=== PATIENT | male | born 1965 | race Caucasian/White ===

== ENCOUNTER 2023-09-24 06:16 | Day surgery (SDC) | payer BC, SELFPAY ==
[2023-09-23 07:50] LABS: Urine Albumin Negative (Neg - Trace); Urine Bilirubin Negative (Negative); Urine Character Clear (Clear); Urine Color Yellow; Urine Glucose Negative (Negative); Urine Ketone Negative (Negative); Urine Leukocyte Negative (Negative); Urine Nitrite Negative (Negative); Urine Occult Blood Negative (Negative); Urine Specific Gravity 1.015 (<1.030); Urine Urobilinogen Negative (Neg - 1+)
[2023-09-23 07:55] LABS: Hematocrit 40.6 % (39.0-52.0); Hemoglobin 13.4 g/dL (13.0-18.0); Mean Corpuscular Hgb 29.5 pg (27.0-31.0); Mean Corpuscular Volume 89.2 fL (80.0-94.0); Platelet Count 193 10^3/uL (130-400); Red Blood Cell Count 4.55 10^6/uL (4.70-6.10); Red Cell Dist. Width 13.2 % (11.5-14.5); White Blood Cell Count 7.9 10^3/uL (4.8-10.8)
[2023-09-23 08:00] LABS: INR 0.99; PT 12.9 Sec (11.4-14.6)
[2023-09-23 08:01] LABS: APTT 24.6 Sec (23.4-35.0)
[2023-09-23 08:14] LABS: Blood Urea Nitrogen 26 mg/dl (9-20); Calcium 9.3 mg/dl (8.4-10.2); Carbon Dioxide 25 mmol/L (22-30); Chloride 102 mmol/L (98-107); Glucose 89 mg/dl (70-99); Potassium 4.5 mmol/L (3.5-5.1); Sodium 134 mmol/L (135-145); eGFR > 60.00
[2023-09-24 08:16] VITALS: BP 131/74
[2023-09-24 08:20] VITALS: BP 131/74; BP 161/84
[2023-09-24 08:30] VITALS: BP 132/70
[2023-09-24 08:45] VITALS: BP 117/70
[2023-09-24] MEDS: Pyridium 200 MG PO (09:09)
[2023-09-24 09:20] VITALS: BP 135/79
== END 2023-09-24 09:35 | disposition home or self-care (01) ==
LOC: SDS 06:16
PROVIDERS: ATTENDING PHYSICIAN Urology; FAMILY PHYSICIAN Family Medicine
DX: N13.5 Crossing vessel and stricture of ureter without hydronephrosis (principal); N13.1 Hydronephrosis with ureteral stricture, not elsewhere classified
CPT/HCPCS: 52005; 36415; 74420; 76000; 80048; 81003; 85027; 85610; 85730; 86850; 86900; 86901; 93005; A4300

== ENCOUNTER 2023-09-26 06:33 | Day surgery (SDC) | payer BC, SELFPAY ==
[2023-09-23 07:24] VITALS: BMI 27.8
[2023-09-24 06:16] VITALS: BMI 27.8
[2023-09-24 06:22] VITALS: BP 161/84
[2023-09-26] VITALS (13 sets, daily range): BP systolic 141–171; BP diastolic 79–90; BMI 27.8; BMI 26.8
[2023-09-26] MEDS: NORMOSOL-R 1000 IV (11:41)
[2023-09-26] MEDS: DILAUDID 0.5 MG IV ×4 (17:48→23:18)
[2023-09-26] MEDS: TORADOL 15 MG IV (18:49)
[2023-09-26] MEDS: NSS 1000 IV (18:51)
--- NOTE | 2023-09-26 20:55 | TRANSFER ---
Pt received from PACU in bed at 1930 w dx of ROBOTIC LEFT PYLEOPLASTY - OX3, drowsy but arousable to verbal. 5 lap sites to ABD w DOTTY singleton. Pt c/o 09/24 pain to abd, did not want pain meds. Bed in lowest position, call hernandez within reach. Safety
maintained.
[2023-09-26] MEDS: SENOKOT 8.59999999999999964 MG PO (21:12)
[2023-09-27] MEDS: TORADOL 15 MG IV ×3 (00:37→12:13)
[2023-09-27 03:58] VITALS: BP 158/81
[2023-09-27 05:13] LABS: % Basophils 0.3 % (0-2); % Eosinophils 0.3 % (0-6); % Immature Granulocytes 0.5 % (0-0.5); % Lymphocytes 22.2 % (20.5-51.1); % Monocytes 6.4 % (1.7-9.3); % Neutrophils 70.3 % (42.2-75.2); Absolute Immature Granulocytes 0.1 10^3/uL (0-0.05); Absolute Lymphocytes 2.1 10^3/uL (1.2-3.4); Absolute Monocytes 0.6 10^3/uL (0.1-0.6); Absolute Neutrophils 6.6 10^3/uL (1.4-6.5); Hematocrit 36.9 % (39.0-52.0); Hemoglobin 11.9 g/dL (13.0-18.0); Mean Corp Hgb Conc. 32.2 g/dL (33.0-37.0); Mean Corpuscular Hgb 29.8 pg (27.0-31.0); Mean Corpuscular Volume 92.3 fL (80.0-94.0); Mean Platelet Volume 10.4 fL (7.4-10.4); Nucleated Red Blood Cells % 0 % (-); Platelet Count 151 10^3/uL (130-400); Red Cell Dist. Width 13.4 % (11.5-14.5); White Blood Cell Count 9.4 10^3/uL (4.8-10.8)
[2023-09-27 05:32] LABS: Blood Urea Nitrogen 18 mg/dl (9-20); Calcium 8.3 mg/dl (8.4-10.2); Carbon Dioxide 29 mmol/L (22-30); Chloride 99 mmol/L (98-107); Estimated Creatinine Clearance 88 ml/min; Glucose 83 mg/dl (70-99); Potassium 4.3 mmol/L (3.5-5.1); Sodium 135 mmol/L (135-145); eGFR > 60.00
[2023-09-27 07:47] VITALS: BP 168/85
--- NOTE | 2023-09-27 08:01 | W.PN.URO.CBU ---
Today's Communication / Plan
-
Discharge
Assessment / Plan
-
58M POD 1 s/p robotic L pyeloplasty
Alves out
Ambulate
Regular diet
Discharge home today - stent to be removed in about 1 mo
Diagnosis
-
Date of Service: September 27, 2023
-
Patient Diagnosis:
L UPJ obstruction
Post Op Day: s/p pyeloplasty 09/25
Subjective
-
feeling well
tolerating diet
Objective
-
Vital Signs
Temp Pulse Resp BP Pulse Ox
98.0 F 70 18 158/81 97
09/27/23 03:58 09/27/23 03:58 09/27/23 03:58 09/27/23 03:58 09/27/23 03:58
Intake and Output
09/26/23 09/27/23 09/28/23
06:59 06:59 06:59
Intake Total 1000 / 1000
Output Total 1100 / 1100
Balance -100 / -100
Intake:
Oral fluids 0 / 0
IV fluids (Total) 1000 / 1000
Normosal 300 / 300
IV piggybacks 0 / 0
Output:
Urine, Alves 1100 / 1100
Laboratory Results
09/27/23 04:06
09/27/23 04:06
Physical Exam
-
General - well developed, well nourished, no acute distress
Chest - clear bilaterally
Abdomen - soft, non-tender
Alves light pink urine
Skin - warm & dry with no rash
Neuro - AOx3, no motor deficits
Extremities - no clubbing, no cyanosis, no edema
[2023-09-27] MEDS: TOPROL XL 25 MG PO (10:09)
[2023-09-27] MEDS: ZYLOPRIM 300 MG PO (10:09)
[2023-09-27] MEDS: CRESTOR 20 MG PO (10:10)
[2023-09-27] MEDS: LOW STRENGTH ASPIRIN 81 MG PO (10:10)
[2023-09-27] MEDS: SENOKOT 8.59999999999999964 MG PO (10:10)
--- NOTE | 2023-09-27 14:17 | CM ---
met with paient and at bedside.patient lives with spouise in 2 story home with 2 ritesh,his bed and bath is o the second level,he amb i and is I with his adl.his pcp is dr luther goldman and he uses [facility] in [place].he has never had a vn or
been to ip rehab in past.pt is adm for left robo pyeloplasty,his stent willbe removed in 1 month.patient will have no needs when dc home.
== END 2023-09-27 13:39 | disposition home or self-care (01) ==
LOC: SDS 06:33
PROVIDERS: ATTENDING PHYSICIAN Urology
DX: N13.5 Crossing vessel and stricture of ureter without hydronephrosis (principal); R10.9 Unspecified abdominal pain; N18.31 Chronic kidney disease, stage 3a
CPT/HCPCS: 50544; 80048; 85025; C2617

== ENCOUNTER → 2023-12-26 10:30 | Outpatient (REF) | payer BC, SELFPAY | LOC: RAD 10:30 | PROVIDERS: ATTENDING PHYSICIAN Urology; FAMILY PHYSICIAN Family Medicine | DX: N13.5 Crossing vessel and stricture of ureter without hydronephrosis (principal) | CPT/HCPCS: 76775; 78708; A9539 ==

== ENCOUNTER → 2024-07-29 10:24 | Outpatient (REF) | payer BC, SELFPAY | LOC: RAD 10:24 | PROVIDERS: ATTENDING PHYSICIAN Urology; FAMILY PHYSICIAN Family Medicine | DX: N13.5 Crossing vessel and stricture of ureter without hydronephrosis (principal) | CPT/HCPCS: 78708; A9539 ==

== ENCOUNTER 2024-10-02 18:58 | Emergency (ER) | payer BC, SELFPAY ==
[2024-10-02 19:03] VITALS: BP 162/98
[2024-10-02 19:18] LABS: % Basophils 0.4 % (0-2); % Eosinophils 1.6 % (0-6); % Immature Granulocytes 0.2 % (0-0.5); % Lymphocytes 36.5 % (20.5-51.1); % Monocytes 7.6 % (1.7-9.3); % Neutrophils 53.7 % (42.2-75.2); Absolute Eosinophils 0.1 10^3/uL (0-0.7); Absolute Monocytes 0.6 10^3/uL (0.1-0.6); Absolute Neutrophils 4.5 10^3/uL (1.4-6.5); Hematocrit 42.1 % (39.0-52.0); Hemoglobin 13.9 g/dL (13.0-18.0); Mean Corpuscular Volume 90.9 fL (80.0-94.0); Mean Platelet Volume 10.1 fL (7.4-10.4); Nucleated Red Blood Cells % 0 % (-); Platelet Count 171 10^3/uL (130-400); Red Blood Cell Count 4.63 10^6/uL (4.70-6.10); Red Cell Dist. Width 12.8 % (11.5-14.5); White Blood Cell Count 8.3 10^3/uL (4.8-10.8)
[2024-10-02 19:35] LABS: ALT (SGPT) 36 U/L (0-50); AST (SGOT) 44 U/L (17-59); Albumin 4.2 g/dl (3.5-5.0); Alkaline Phosphatase 81 U/L (38-126); Blood Urea Nitrogen 24 mg/dl (9-20); Calcium 9.6 mg/dl (8.4-10.2); Carbon Dioxide 28 mmol/L (22-30); Chloride 102 mmol/L (98-107); Glucose 99 mg/dl (70-99); Potassium 4.5 mmol/L (3.5-5.1); Sodium 138 mmol/L (135-145); Total Bilirubin 0.5 mg/dl (0.2-1.3); Total Protein 6.9 g/dl (6.3-8.2); eGFR > 60.00
[2024-10-02 19:46] LABS: Troponin I < 0.012 ng/ml
[2024-10-02 20:40] VITALS: BP 146/99
[2024-10-02 21:00] VITALS: BP 144/80
[2024-10-02 22:00] VITALS: BP 138/79
[2024-10-02 23:44] LABS: Troponin I < 0.012 ng/ml
--- NOTE | 2024-10-03 00:17 | ED.GENMED ---
History of Present Illness
General
Chief Complaint: Chest Pain
Source: patient and spouse
Time Seen by Provider: 10/02/24 22:34
History of Present Illness
History of Present Illness:
59-year-old male who presents with chest pain. Patient states has been ongoing for 5 to 6 days at this point. Admits that the pain is generally mild but just persistent. Patient admits that the pain is there almost all day. States sometimes in
the morning is not quite noticeable but as the day goes on maybe midmorning or early afternoon, the pain persist throughout the rest of the day and evening. He states today he was planting planters and planted many plants in the yard. He states
that the pain did not change but when he was get a shower continue to notice and decided because it has been going on a week he would come in. States it does not feel anything like his previous coronary event. He does not smoke. He denies
shortness of breath. Does have history of reflux disease and takes Prilosec. Does admit that occasionally he will get a 'twinge' into his back as well. He states he just feels like a general tightness across his chest that is mild. He does have
it now to a mild degree and has been persistent for hours
Past History
Past History
ED Past Medical History: CAD, HTN, Hypercholesterolemia and Other (Gout)
ED Past Surgical History: Orthopedic
Social History
Tobacco: Non-smoker
Alcohol: Occasional
Drug: Marijuana
Personal:
Living: with family
Phy Exam
Physical Exam
Physical Exam:
CONSTITUTIONAL Patient alert and oriented to person, place and time. Well-appearing. Vital signs reviewed.
HEAD atraumatic, normocephalic.
EYES eyelids normal to inspection, Extraocular muscles intact, Conjunctiva normal, Sclera normal.
NECK normal range of motion, Trachea midline, no jugular venous distention.
RESPIRATORY CHEST No respiratory distress noted, Chest expansion equal, Bilateral breath sounds clear.
CARDIOVASCULAR regular rate and rhythm, Heart sounds normal.
ABDOMEN abdomen nontender, Bowel sounds normal. No distention.
BACK normal inspection, no obvious deformities
UPPER EXTREMITY range of motion normal, Motor strength normal, no cyanosis, no edema.
LOWER EXTREMITY range of motion normal, Motor strength normal, no cyanosis, no edema.
NEURO Speech normal, No focal motor deficits, [place] coma scale 15, Memory normal, Cranial Nerves intact to screening exam.
SKIN skin warm, dry, and normal in color.
Scores
Heart Score for Chest Pain Patients
STEMI patient?: No
History: Slightly or Non-Suspicious
ECG: Normal
Age: >45 - <65 years
Risk Factors: >/= 3 Risk Factors or History of CAD
Troponin: </= Normal Limit
Heart Score for Chest Pain Patients: 3
Heart Score Risk: 2.5% MACE over next 6 weeks
Course
Orders/Labs/Results
Orders:
Orders
10/02/24 18:59
ECG [Electrocardiogram (*1)] Urgent
Reason for Study: Chest Pain
EKG- Treatment ONCE
10/02/24 19:12
Complete Blood Count/With Diff Urgent
Comprehensive Metabolic Panel Urgent
Troponin I Urgent
10/02/24 23:02
Electrocardiogram (*1) Urgent
Reason for Study: Chest Pain
EKG- Treatment ONCE
10/02/24 23:03
CT Chest/abd/pelvis Angio W/wo Urgent
Comment:
Reason For Exam: cp radiating to back
10/02/24 23:09
Troponin I Urgent
Abnormal Lab Results
10/02/24
19:12
RBC 4.63 L 10^6/uL
(4.70-6.10)
BUN 24 H mg/dl
(9-20)
10/02/24 19:12
10/02/24 19:12
Vital Signs
Initial and Last Documented VS:
Initial Vital Signs
Temp Pulse Resp BP Pulse Ox
98.2 F 89 18 162/98 98
10/02/24 19:03 10/02/24 19:03 10/02/24 19:03 10/02/24 19:03 10/02/24 19:03
Last Documented Vital Signs
Temp Pulse Resp BP Pulse Ox
98.2 F 74 11 138/79 96
10/02/24 19:03 10/02/24 22:15 10/02/24 22:15 10/02/24 22:00 10/02/24 22:15
MDM/Problems Addressed
Differential Diagnosis Includes:
ACS, PE, dissection, pneumothorax, GERD, esophageal spasm, TX
MDM/Problems Addressed:
Chest pain
*Radiology
Radiology exam reviewed: radiology read reviewed
*Pulse Oximetry
Patient hypoxic: no
*EKG
Interpreted by ED Provider?: Yes
Interpretation: normal
Rate: normal
Rhythm: sinus
[place]: normal axis
Interval: normal interval
QRS Pattern: normal QRS
Ischemia: no ischemia
*Lab Engineer Interpretation
Rate: normal
Interpretation: normal
Rhythm: sinus
*Critical Care Note
Total Time (30-74mins, 75-104mins- exclusive of procedures): Not Applicable
Data Reviewed
Source: spouse (Spouse states that has been going on for 5 to 7 days.)
Prescriptions/Medications Considered But Not Given:
Considered heparin but troponin x 2 negative
Patient Management
Escalation/DeEscalation of care consider admission/obs:
Troponin x 2 negative. EKG x 2 negative, despite close to 1 week of pain and symptoms. Patient at the very least does have symptoms all day. Will refer to outpatient cardiology follow-up with Dr. Leigh. CTA negative for dissection. No
obvious PE. No hypoxia. Otherwise does appear well
ED Attending Note
-
Portions of this chart may have been created with voice recognition software.� Occasional wrong word or��sound alike� substitutions may have occurred due to the inherent limitations of voice recognition software.
Discharge Plan
Departure
Patient Disposition: Home (Routine Discharge)
Date of Disposition: 10/03/24
Time of Disposition: 00:17
Patient with high blood pressure during this ER visit?: No
Discharge Problem:
Chest pain
Instructions: Chest Pain CBC Follow Up
Prescriptions:
No Action
allopurinol 300 MG tablet
300 mg PO DAILY
rosuvastatin 10 MG tablet
20 mg PO DAILY
ibuprofen [Advil] 200 mg Tablet
400 mg PO Q6H PRN (Reason: pain)
aspirin 81 mg Tablet,Chewable
81 mg PO DAILY
metoprolol succinate 25 mg Tablet Extended Release 24 Hr
25 mg PO DAILY
oxycodone-acetaminophen 5-325 mg Tablet
1 tab PO Q4HPRN PRN (Reason: moderate pain) Qty: 10 0RF
oxybutynin chloride 10 mg tablet extended release 24hr
10 mg PO DAILY PRN (Reason: frequent urination) Qty: 30 1RF
Referrals:
Jade Griffith CRNP [Family Provider] -
Activity Restrictions/Additional Instructions:
Please take 81 mg of aspirin a day. Please avoid strenuous or exertional activity until cleared by cardiology. Please see cardiology in the next 48 hours for reevaluation. Return immediately for worsening pain, shortness breath, palpitations,
sweating, nausea, weakness of any kind, numbness, tingling or any other concerns.
Cardiology has been notified and a follow up appointment has been requested. Someone will call you on the next business day to schedule a follow up appointment.
Interventions
Interventions:
*Risk Screen - Suicide Last Done: 10/02/24 19:03
*General Assessment Last Done: 10/02/24 19:03
*Neglect/Abuse Screening Last Done: 10/02/24 19:03
*ED- Fall Risk Assessment Last Done: 10/02/24 20:44
*ED COVID-19 Vaccine History Last Done: 10/02/24 22:37
*Nursing Disposition Last Done: 10/03/24 00:37
ED- Cardiac Assessment Last Done: 10/03/24 00:36
Discharge Date and Time
Discharge Date/Time: 10/03/24 00:37
Print Language: KAZAKH
== END 2024-10-03 00:37 | disposition home or self-care (01) ==
LOC: EMR 18:58
PROVIDERS: Emergency Medicine; EMERGENCY PHYSICIAN Emergency Medicine; FAMILY PHYSICIAN Nurse Practitioner Adult Health
DX: R07.89 Other chest pain (principal); I25.10 Atherosclerotic heart disease of native coronary artery without angina pectoris; I10 Essential (primary) hypertension; E78.00 Pure hypercholesterolemia, unspecified; K21.9 Gastro-esophageal reflux disease without esophagitis
CPT/HCPCS: 99284; 71275; 74174; 80053; 84484; 85025; 93005; Q9967

== ENCOUNTER → 2024-10-14 11:13 | Outpatient (REF) | payer BC, SELFPAY | LOC: HWRCS 11:13 | PROVIDERS: ATTENDING PHYSICIAN Nurse Practitioner; FAMILY PHYSICIAN Family Medicine | DX: R07.89 Other chest pain (principal) | CPT/HCPCS: 78452; 93017; A9500 ==

== ENCOUNTER 2025-06-06 21:47 | Emergency (ER) | payer OTHER, SELFPAY ==
[2025-06-06 21:48] VITALS: BP 160/114
[2025-06-06 22:14] LABS: Hematocrit 41.4 % (39.0-52.0); Hemoglobin 13.7 g/dL (13.0-18.0); Mean Corp Hgb Conc. 33.1 g/dL (33.0-37.0); Mean Corpuscular Volume 90.2 fL (80.0-94.0); Nucleated Red Blood Cells % 0 % (-); Platelet Count 155 10^3/uL (130-400); Red Cell Dist. Width 13.2 % (11.5-14.5)
[2025-06-06 22:27] LABS: ALT (SGPT) 25 U/L (0-50); AST (SGOT) 28 U/L (17-59); Albumin 4.2 g/dl (3.5-5.0); Alkaline Phosphatase 60 U/L (38-126); Blood Urea Nitrogen 28 mg/dl (9-20); Calcium 9.3 mg/dl (8.4-10.2); Carbon Dioxide 28 mmol/L (22-30); Chloride 102 mmol/L (98-107); Glucose 107 mg/dl (70-99); Potassium 3.8 mmol/L (3.5-5.1); Sodium 134 mmol/L (135-145); Total Protein 7.2 g/dl (6.3-8.2); eGFR 52.31
[2025-06-07 00:12] VITALS: BP 166/98
[2025-06-07 01:00] VITALS: BP 143/98
[2025-06-07 02:18] LABS: Magnesium 1.9 mg/dl (1.6-2.3)
--- NOTE | 2025-06-07 02:52 | ED.GENMED ---
History of Present Illness
<Geraldine Westbrook PA-C - Last Filed: 06/07/25 08:23>
General
Chief Complaint: Cardiac Symptoms
Source: patient
Exam Limitations: none
Time Seen by Provider: 06/07/25 02:31
Nursing documentation reviewed up to this point in time: agreed with
History of Present Illness
History of Present Illness:
60-year-old male with past medical history of A-fib, coronary artery disease, hypertension, hyperlipidemia, follows with Dr. Leigh presents to the ER today with concerns of palpitations feeling as if his heart would skip a beat. He reports that
his heart rate did not go fast. He reports a count and would noticed that every few beats, there would be a premature beat or feeling he would skip a beat. He never had this before. Started few days ago. He drinks tea every day but denies
excessive caffeine use. He denies any recent illnesses. He denies any fevers or chills. He denies any chest pain or shortness of breath. He denies any history of thyroid disease.
Past History
<Geraldine Westbrook PA-C - Last Filed: 06/07/25 08:23>
Past History
ED Past Medical History: CAD, HTN, Hypercholesterolemia and Other (Gout)
ED Past Surgical History: Orthopedic
Social History
Tobacco: Non-smoker
Alcohol: Occasional
Drug: Marijuana
Personal:
Living: with family
Review of Systems
<Geraldine Westbrook PA-C - Last Filed: 06/07/25 08:23>
Review of Systems
All Other Systems: ROS reviewed and negative except as documented in HPI and ROS
Phy Exam
<Geraldine Westbrook PA-C - Last Filed: 06/07/25 08:23>
Physical Exam
Physical Exam:
GEN: Well appearing, NAD, WDWN
Eyes: PERRLA, EOMs intact, no scleral icterus
HENT: NCAT, oral mucosa moist, no JVD
Lungs: CTAB, no wheezes, rales, rhonchi, normal chest wall excursion
Cardiac: RRR, no M/R/G, no peripheral edema, occasional premature beat
Abdomen: S, NT, ND, NABS, no masses or hepatosplenomegaly
Neuro: AO x 3, no focal deficits to BUE/BLE, normal sensation throughout
Skin: No rashes, petechiae. Normal color, no pallor or jaundice.
Psych: Calm, cooperative, proper hygiene
Course
<Geraldine Westbrook PA-C - Last Filed: 06/07/25 08:23>
Orders/Labs/Results
Orders:
Orders
06/06/25 21:52
EKG [Electrocardiogram (*1)] Urgent
Reason for Study: Palpitations
06/06/25 21:53
EKG- Treatment ONCE
06/06/25 22:02
CMP [Comprehensive Metabolic Panel] Urgent
Complete Blood Count/With Diff Urgent
Magnesium Urgent
Comment: ADD ON
TSH Reflex To Free T4 Urgent
Comment: ADD ON
06/07/25 02:07
Add On- LAB Urgent
Tests Added?: magnesium
06/07/25 02:50
0.9% Sodium Chloride 1000 ml [Nss] 1,000 ml IV BOLUS
06/07/25 02:57
Add On- LAB Urgent
Tests Added?: TSH reflex to t4
Abnormal Lab Results
06/06/25
22:02
RBC 4.59 L 10^6/uL
(4.70-6.10)
Absolute Monos (auto) 0.7 H 10^3/uL
(0.1-0.6)
Sodium 134 L mmol/L
(135-145)
BUN 28 H mg/dl
(9-20)
Creatinine 1.5 H mg/dL
(0.7-1.3)
Glucose 107 H mg/dl
(70-99)
06/06/25 22:02
06/06/25 22:02
Vital Signs
Initial and Last Documented VS:
Initial Vital Signs
Temp Pulse Resp BP Pulse Ox
98.0 F 73 20 160/114 98
06/06/25 21:48 06/06/25 21:48 06/06/25 21:48 06/06/25 21:48 06/06/25 21:48
Last Documented Vital Signs
Temp Pulse Resp BP Pulse Ox
98.0 F 79 16 143/98 100
06/06/25 21:48 06/07/25 01:45 06/07/25 02:00 06/07/25 01:00 06/07/25 02:52
<Zuleyka Liu, DO - Last Filed: 06/07/25 03:00>
Orders/Labs/Results
Orders:
Orders
06/06/25 21:52
EKG [Electrocardiogram (*1)] Urgent
Reason for Study: Palpitations
06/06/25 21:53
EKG- Treatment ONCE
06/06/25 22:02
CMP [Comprehensive Metabolic Panel] Urgent
Complete Blood Count/With Diff Urgent
Magnesium Urgent
Comment: ADD ON
TSH Reflex To Free T4 Urgent
Comment: ADD ON
06/07/25 02:07
Add On- LAB Urgent
Tests Added?: magnesium
06/07/25 02:50
0.9% Sodium Chloride 1000 ml [Nss] 1,000 ml IV BOLUS
06/07/25 02:57
Add On- LAB Urgent
Tests Added?: TSH reflex to t4
Abnormal Lab Results
06/06/25
22:02
RBC 4.59 L 10^6/uL
(4.70-6.10)
Absolute Monos (auto) 0.7 H 10^3/uL
(0.1-0.6)
Sodium 134 L mmol/L
(135-145)
BUN 28 H mg/dl
(9-20)
Creatinine 1.5 H mg/dL
(0.7-1.3)
Glucose 107 H mg/dl
(70-99)
06/06/25 22:02
06/06/25 22:02
Vital Signs
Initial and Last Documented VS:
Initial Vital Signs
Temp Pulse Resp BP Pulse Ox
98.0 F 73 20 160/114 98
06/06/25 21:48 06/06/25 21:48 06/06/25 21:48 06/06/25 21:48 06/06/25 21:48
Last Documented Vital Signs
Temp Pulse Resp BP Pulse Ox
98.0 F 79 16 143/98 100
06/06/25 21:48 06/07/25 01:45 06/07/25 02:00 06/07/25 01:00 06/07/25 02:52
Rustylt;Geraldine Westbrook PA-C - Last Filed: 06/07/25 08:23>
MDM/Problems Addressed
Differential Diagnosis Includes:
ddx include PVCs, PACs, afib, aflutter
MDM/Problems Addressed:
60-year-old male past medical history of coronary artery disease follows with Dr. Leigh was found to have unifocal PVCs. Cardiac monitoring reveals a PVC every 3-4 beats. He tried taking extra metoprolol which did not help. Reassured patient
that this is benign and recommended calling Dr. Corea's office tomorrow. We recommended trying to increase metoprolol for the next few days but advised to return to develop chest pain, lightheadedness, dizziness, etc.
Chronic conditions affecting care: HTN and CAD
Acute Exacerbation and/or Progression of Chronic Illness: HTN
<Geraldine Westbrook PA-C - Last Filed: 06/07/25 08:23>
*Pulse Oximetry
SaO2: 100
Oxygen Mode of Delivery: Room air
Patient hypoxic: no
*Critical Care Note
Total Time (30-74mins, 75-104mins- exclusive of procedures): Not Applicable
Data Reviewed
Review of Other/Old Records Reveals: Records (reviewed ER physician documentation from 10/03/24)
Source: patient
<Geraldine Westbrook PA-C - Last Filed: 06/07/25 08:23>
Patient Management
Escalation/DeEscalation of care consider admission/obs:
admit not indicated
ED Attending Note
<Geraldine Westbrook PA-C - Last Filed: 06/07/25 08:23>
-
Portions of this chart may have been created with voice recognition software.� Occasional wrong word or��sound alike� substitutions may have occurred due to the inherent limitations of voice recognition software.
<Zuleyka Lui DO - Last Filed: 06/07/25 03:00>
ED Attending Note
Patient seen and examined by attending physician: Yes
I performed a history and physical exam of patient and discussed management with resident, I reviewed resident's note and agree with documented findings and plan of care.: Yes
ED Attending Note:
This is a 60-year-old gentleman with history of CAD, PAF, hypertension, hyperlipidemia. He presents with palpitations, intermittent that began a few days ago. No other associated symptoms. He does admit to moderate stress, poor sleep over the
past few days.
He follows with Dr. Leigh.
60-year-old gentleman appears his stated age, awake and alert, pleasant, appears in no acute distress. Accompanied by his .
Heart is regular rate and rhythm with occasional ectopy. No murmur.
No respiratory distress.
EKG shows normal sinus rhythm with unifocal PVCs. residential monitor shows similar.
It appears palpitations are related to these unifocal PVCs.
Labs are remarkable for mild uptrend in creatinine to 1.5. An element of dehydration may be exacerbating PVCs. Chemistries are otherwise unremarkable. Magnesium is normal.
Will add TSH.
I discussed IV fluid bolus as an element of dehydration along with lack of sleep may be exacerbating PVCs. Patient elects to forego IV fluids and will increase clear liquids over the next several days.
Encouraged adequate sleep on a nightly basis and patient plans to contact his websphere portal developer in the morning, Dr. Leigh.
Discharge Plan
Departure
Patient Disposition: Home (Routine Discharge)
Date of Disposition: 06/07/25
Time of Disposition: 02:57
Patient with high blood pressure during this ER visit?: Yes
Condition: Good
Discharge Problem:
Unifocal PVCs, Palpitations
Instructions: Ventricular premature beats, BLOOD PRESSURE
Prescriptions:
No Action
allopurinol 300 MG tablet
300 mg PO DAILY
rosuvastatin 10 MG tablet
20 mg PO DAILY
ibuprofen [Advil] 200 mg Tablet
400 mg PO Q6H PRN (Reason: pain)
aspirin 81 mg Tablet,Chewable
81 mg PO DAILY
metoprolol succinate 25 mg Tablet Extended Release 24 Hr
25 mg PO DAILY
oxycodone-acetaminophen 5-325 mg Tablet
1 tab PO Q4HPRN PRN (Reason: moderate pain) Qty: 10 0RF
oxybutynin chloride 10 mg tablet extended release 24hr
10 mg PO DAILY PRN (Reason: frequent urination) Qty: 30 1RF
Referrals:
Asaf Acosta DO [Family Provider, Family Practice]
Activity Restrictions/Additional Instructions:
As discussed, you can consider increasing your metoprolol dose to 25 mg twice a day for the next few days. Please call Dr. Corea's office to schedule appointment for follow-up.
PLEASE RETURN TO ER SHOULD YOU DEVELOP SHORTNESS OF BREATH, CHEST PAIN, DIZZINESS, LIGHTHEADEDNESS, FAINTING SPELLS, OR ANY OTHER SIGNS OR SYMPTOMS WORRISOME TO YOU.
Interventions
Interventions:
*General Assessment Last Done: 06/06/25 21:48
*Neglect/Abuse Screening Last Done: 06/06/25 21:48
*ED COVID-19 Vaccine History Last Done: 06/07/25 02:17
*ED Influenza Vaccine History Last Done: 06/07/25 02:17
[facility] Risk Assessment Tool Last Done: 06/07/25 02:17
*Risk Screen - Suicide (C-SSRS) Last Done: 06/06/25 21:48
*Nursing Disposition Last Done: 06/07/25 03:06
ED- Pulmonary Assessment Last Done: 06/07/25 02:17
ED- Cardiac Assessment Last Done: 06/07/25 02:17
Discharge Date and Time
Discharge Date/Time: 06/07/25 03:07
Print Language: [place]
== END 2025-06-07 03:07 | disposition home or self-care (01) ==
LOC: EMR 21:47
PROVIDERS: Emergency Medicine; EMERGENCY PHYSICIAN Emergency Medicine; FAMILY PHYSICIAN Family Medicine
DX: I49.3 Ventricular premature depolarization (principal); I25.10 Atherosclerotic heart disease of native coronary artery without angina pectoris; I48.91 Unspecified atrial fibrillation; I10 Essential (primary) hypertension; E78.00 Pure hypercholesterolemia, unspecified; M10.9 Gout, unspecified; Z79.82 Long term (current) use of aspirin
CPT/HCPCS: 99284; 80053; 83735; 84443; 85025; 93005